=== PATIENT | female | born 1955 | race Caucasian/White ===

== ENCOUNTER → 2017-06-27 | Outpatient (CLI) | payer BC | LOC: MC.RAD 14:15 | DX: Z12.31 Encounter for screening mammogram for malignant neoplasm of breast (principal) ==

== ENCOUNTER → 2019-02-25 | Outpatient (CLI) | payer BC | LOC: MC.RAD 13:09 | DX: Z12.31 Encounter for screening mammogram for malignant neoplasm of breast (principal) ==

== ENCOUNTER 2020-06-01 17:37 | Emergency (ER) | payer MEDICARE, BC ==
[~2020-06-01] VITALS: Ht 154.9 cm; Wt 63.6 kg
[2020-06-01 17:45] VITALS: TEMP 97.8
[2020-06-01 18:28] LABS: BASO % 0.3 % (0.0-2.0); EOS % 0.5 % (0-4.0); GRAN # 4.9 (1.4-6.5); GRAN % 63.8 % (42.2-75.2); LYMPH % 25.7 % (20.0-51.0); MEAN CELL VOLUME 88 fl (80.0-100.0); MEAN CORPUSCULAR HEMOGLOBIN 30 pg (27.0-31.0); MEAN CORPUSCULAR HGB CONC 34 g/dl (33.0-37.0); MEAN PLATELET VOLUME 13.3 fl (7.4-10.4); MONO # 0.7 (0.1-0.6); MONO % 9.3 % (1.7-9.3); PLATELET COUNT 138 K/mm3 (130-400); RED BLOOD COUNT 4.04 M/mm3 (4.10-5.30); REDCELL DISTRIBUTION WIDTH-CV 13.4 % (11.5-14.5)
[2020-06-01 18:29] LABS: HEMATOCRIT 35.7 % (37.0-47.0)
[2020-06-01 18:37] LABS: ALBUMIN 3.5 gm/dL (3.5-5.0); BILIRUBIN,TOTAL 0.5 mg/dL (0.0-1.0); CALCIUM 8.3 mg/dL (8.4-10.2); CREATININE, serum 1.24 (0.52-1.25); POTASSIUM 5.1 mmol/L (3.4-5.0); TOTAL PROTEIN 6.3 gm/dL (6.4-8.2)
[2020-06-01 19:02] LABS: TROPONIN-I 0.043 ng/mL (0.000-0.035)
[2020-06-01 21:40] LABS: MUCOUS Present /lpf; PH 5 (5-8); SQUAMOUS EPITHELIAL 0-2 /hpf; URINE APPEARANCE Hazy; URINE BACTERIA None Seen /hpf; URINE BILIRUBIN Negative (NEGATIVE); URINE BLOOD 1+ (NEGATIVE); URINE COLOR Yellow; URINE GLUCOSE Negative (NEGATIVE); URINE KETONE Negative (NEGATIVE); URINE LEUKOCYTE ESTERASE Negative (NEGATIVE); URINE NITRATE Negative (NEGATIVE); URINE PROTEIN(semi-quant) 2+ (NEGATIVE); URINE UROBILINOGEN Negative (NEGATIVE); URINE WBC 0-2 /hpf
[2020-06-01 22:04] LABS: COLLECTION METHOD CLEAN CATCH
[2020-06-01 23:04] VITALS: BP 118/86; PULSE 66
== END 2020-06-01 23:10 | disposition short-term general hospital (02) ==
LOC: COL.ER 17:37
PROVIDERS: Nurse Practitioner Primary Care
DX: E86.0 Dehydration (principal); R00.0 Tachycardia, unspecified; R11.0 Nausea; Z20.828 Contact with and (suspected) exposure to other viral communicable diseases; Z88.6 Allergy status to analgesic agent
CPT/HCPCS: J0153; J0282; J0330; J2250; J2704; J3010; J3475; J7030; J7060; Q9967

== ENCOUNTER → 2021-05-01 | Outpatient (CLI) | payer MEDICARE, BC | LOC: MC.RAD 13:07 | DX: Z12.31 Encounter for screening mammogram for malignant neoplasm of breast (principal) ==

== ENCOUNTER 2021-09-20 14:39 | Outpatient (RCR) | payer SELFPAY | END 2021-09-21 | LOC: COL.CR | DX: Z29.8 Encounter for other specified prophylactic measures (principal) ==

== ENCOUNTER 2021-10-20 15:59 | Outpatient (RCR) | payer SELFPAY | END 2021-10-21 | LOC: COL.CR | DX: Z29.8 Encounter for other specified prophylactic measures (principal) ==

== ENCOUNTER 2021-11-15 14:56 | Outpatient (RCR) | payer SELFPAY | END 2021-11-21 | LOC: COL.CR | DX: Z29.8 Encounter for other specified prophylactic measures (principal) ==

== ENCOUNTER 2021-12-20 14:41 | Outpatient (RCR) | payer SELFPAY | END 2021-12-21 | LOC: COL.CR | DX: Z29.8 Encounter for other specified prophylactic measures (principal) ==

== ENCOUNTER 2022-01-19 14:49 | Outpatient (RCR) | payer SELFPAY | END 2022-01-21 | LOC: COL.CR | DX: Z29.8 Encounter for other specified prophylactic measures (principal) ==

== ENCOUNTER → 2022-02-21 | Outpatient (RCR) | payer SELFPAY | LOC: COL.CR | DX: Z29.8 Encounter for other specified prophylactic measures (principal) ==

== ENCOUNTER → 2022-08-23 | Outpatient (CLI) | payer MEDICARE, BC ==
[~2022-08-23] MED LIST: COZAAR 25MG25 MG/TAB PO; ELIQUIS 5MG PO; MAG-OX 400400 MG/TAB PO; OSCAL 500 TAB500 MG PO; PACERONE100 MG PO; TOPROL XL 25MG25 MG PO; VENOFER IV; VITAMIND3 5000 PO
== END ==
LOC: MC.RAD 14:41
DX: Z12.31 Encounter for screening mammogram for malignant neoplasm of breast (principal)